=== PATIENT | male | born 1985 | race American Indian/Alaskan Native ===

== ENCOUNTER 2021-10-24 14:14 | Emergency (ER) | payer SELFPAY ==
[2021-10-24 14:25] VITALS: BP 177/115
--- NOTE | 2021-10-24 14:37 | Emergency Department Report ---
ED ENT HPI - General Chief complaint: Dental/Oral Stated complaint: TOOTHACHE Time Seen by Provider: 10/24/21 14:34 Source: patient Mode of arrival: Stretcher Limitations: No Limitations - History of Present Illness Initial comments: 36-year-old male presents to the ER today with complaints of right lower dental pain, right lower jaw. Onset a couple days ago. Patient admits that he has an impacted tooth in that right most posterior molar. He states that he went to the dental clinic at [facility] about 6 months ago and had x-rays and he was given referral information to [facility], but he states that the appointment was too far out and therefore never followed up. He reports swelling but no other symptoms. MD complaint: tooth pain -: days(s) - Related Data Previous Rx's Medication Instructions Recorded Last Taken Type Acetaminophen/Codeine [Tylenol 1 tab PO Q4HR PRN #12 tablet 10/24/21 Unknown Rx /Codeine # 3 tab] Penicillin V Potassium 500 mg PO QID #40 10/24/21 Unknown Rx Allergies Allergy/AdvReac Type Severity Reaction Status Date / Time No Known Allergies Allergy Verified 10/24/21 14:25 ED Dental HPI - General Chief complaint: Dental/Oral Stated complaint: TOOTHACHE Time Seen by Provider: 10/24/21 14:34 Source: patient Mode of arrival: Stretcher Limitations: No Limitations - Related Data Previous Rx's Medication Instructions Recorded Last Taken Type Acetaminophen/Codeine [Tylenol 1 tab PO Q4HR PRN #12 tablet 10/24/21 Unknown Rx /Codeine # 3 tab] Penicillin V Potassium 500 mg PO QID #40 10/24/21 Unknown Rx Allergies Allergy/AdvReac Type Severity Reaction Status Date / Time No Known Allergies Allergy Verified 10/24/21 14:25 ED Review of Systems ROS: Stated complaint: TOOTHACHE Other details as noted in HPI Comment: All other systems reviewed and negative Constitutional: denies: chills, fever ENT: dental pain. denies: ear pain, throat pain, hearing loss, epistaxis, c ongestion Respiratory: denies: cough, shortness of breath, SOB with exertion, SOB at rest, wheezing Cardiovascular: denies: chest pain, palpitations Gastrointestinal: denies: abdominal pain, nausea, diarrhea, constipation, he matemesis, melena, hematochezia Genitourinary: denies: urgency, dysuria, frequency, hematuria, testicular pain, testicular mass Skin: denies: rash, lesions, change in color, change in hair/nails, pruritus Neurological: denies: headache, weakness, numbness, paresthesias, confusion, abnormal gait, vertigo Psychiatric: denies: anxiety, depression, auditory hallucinations, visual hallucinations, homicidal thoughts, suicidal thoughts Hematological/Lymphatic: denies: easy bleeding, easy bruising, swollen glands ED Past Medical Hx - Past Medical History Previous Medical History?: No - Medications Home Medications: Home Medications Medication Instructions Recorded Confirmed Last Taken Type Acetaminophen/Codeine [Tylenol 1 tab PO Q4HR PRN #12 tablet 10/24/21 Unknown Rx /Codeine # 3 tab] Penicillin V Potassium 500 mg PO QID #40 10/24/21 Unknown Rx ED Physical Exam - General Limitations: No Limitations General appearance: alert, in no apparent distress - Head Head exam: Present: atraumatic, normocephalic, normal inspection - Eye Eye exam: Present: normal appearance, PERRL, EOMI Pupils: Present: normal accommodation - ENT ENT exam: Present: normal exam, mucous membranes moist - Expanded ENT Exam Expanded Mouth exam: Present: normal external inspection Teeth exam: Present: normal inspection, dental caries 1 - Dental Tenderness (mild-mod), Other (Dental decay with impaction and mild gum swelling no apparent abscess) Throat exam: Positive: normal inspection - Neck Neck exam: Present: normal inspection, full ROM. Absent: meningismus - Respiratory Respiratory exam: Present: normal lung sounds bilaterally. Absent: respiratory distress, wheezes, rales, rhonchi - Cardiovascular Cardiovascular Exam: Present: regular rate, normal rhythm, normal heart sounds - GI/Abdominal GI/Abdominal exam: Present: soft. Absent: distended, tenderness, guarding, rebound - Neurological Exam Neurological exam: Present: alert, oriented X3, CN II-XII intact, normal gait - Psychiatric Psychiatric exam: Present: normal affect, normal mood - Skin Skin exam: Present: intact ED Course Vital Signs 10/24/21 14:22 Temperature 98.7 F Pulse Rate 70 Respiratory 16 Rate Blood Pressure 177/115 O2 Sat by Pulse 100 Oximetry Critical care attestation.: If time is entered above; I have spent that time in minutes in the direct care of this critically ill patient, excluding procedure time. ED Disposition Clinical Impression: Dental impaction, Dental decay Disposition: 01 HOME / SELF CARE / HOMELESS Is pt being admited?: No Does the pt Need Aspirin: No Condition: Stable Instructions: Impacted Molar Additional Instructions: Take the tylenol 3 as prescribed for pain. You can continue also with ibuprofen for additional pain control. Take the penicillin as prescribed. I recommend that you monitor your blood pressure at home, no more than twice per day and keep a record of your blood pressure. Follow-up with the primary care doctor listed below if you blood pressure remains persistently elevated for about a week. Follow up with Dentist saturday. Return to ED if worse. Prescriptions: Penicillin V Potassium 500 mg PO QID #40 Acetaminophen/Codeine [Tylenol /Codeine # 3 tab] 1 tab PO Q4HR PRN #12 tablet PRN Reason: Pain Referrals: [facility] [Provider Group] - 3-5 Days Forms: Work/School Release Form(ED) Time of Disposition: 14:37
== END 2021-10-24 15:51 | disposition home or self-care (01) ==
LOC: ED 14:14
DX: K01.1 Impacted teeth (principal); K02.9 Dental caries, unspecified
CPT/HCPCS: 99282